=== PATIENT | male | born 1985 | race Caucasian/White ===

== ENCOUNTER 2016-07-23 16:07 | Emergency (ER) | payer OTHER ==
[2016-07-23 16:14] VITALS: BP 131/83; PULSE 99; TEMP 97.6; BMI 38.0
[2016-07-23] MEDS ORDERED: diphenhydrAMINE HCL 25 MG CAPSULE (FP) PO ONE (16:15)
--- NOTE | 2016-07-23 16:15 | PDOC ---
History of Present Illness - History of Present Illness Initial Comments: 07/23/16 16:19 The patient is a 31 year old male, with a significant past medical history of migraines, who presents to the emergency department with a pruritic rash to his bilateral wrists since 10:30 AM today. He reports he was in a dark basement working on an oil tank this morning when he noticed shortly after that his wrists were red and itchy. He reports the right wrist is more itchy and red than his left wrist. He also states that his right wrist is swollen, whereas the left wrist is not. He denies chest pain, shortness of breath, headache and dizziness. He denies fever, chills, nausea, vomit, diarrhea and constipation. He denies dysuria, frequency, urgency and hematuria. Allergies: NKDA <Bessie Wilson - Last Filed: 07/23/16 17:41> <Martha Jacobo - Last Filed: 07/23/16 21:43> - General Chief Complaint: Allergic Reaction Stated Complaint: RT WRIST REDNESS AND SWELLING Time Seen by Provider: 07/23/16 16:15 Past History <Bessie Wilson - Last Filed: 07/23/16 17:41> - Past Medical History Other medical history: DENIES - Psycho/Social/Smoking Cessation Hx Anxiety: No Suicidal Ideation: No Smoking History: Never smoked Have you smoked in the past 12 months: No Information on smoking cessation initiated: No Hx Alcohol Use: No Drug/Substance Use Hx: No Substance Use Type: None <Martha Jacobo - Last Filed: 07/23/16 21:43> - Past Medical History Allergies/Adverse Reactions: Allergies Allergy/AdvReac Type Severity Reaction Status Date / Time No Known Allergies Allergy Verified 07/23/16 16:08 Home Medications: Ambulatory Orders NK [No Known Home Medication] 03/05/14 Review of Systems - Review of Systems Able to Perform ROS?: Yes Comments:: 07/23/16 16:19 GENERAL/CONSTITUTIONAL: No fever or chills. No weakness. HEAD, EYES, EARS, NOSE AND THROAT: No sore throat. MUSCULOSKELETAL: No joint or muscle swelling or pain. No neck or back pain. SKIN: (+) itchy rash to bilateral wrists and swelling to right wrist. NEUROLOGIC: No headache, vertigo, loss of consciousness, or change in strength/ sensation. <Blessing Wilsonanda - Last Filed: 07/23/16 17:41> *Physical Exam - Vital Signs Last Vital Signs Temp Pulse Resp BP Pulse Ox 97.6 F 99 H 20 131/83 99 07/23/16 16:08 07/23/16 16:08 07/23/16 16:08 07/23/16 16:08 07/23/16 16:08 <Bessie Wilson - Last Filed: 07/23/16 17:41> - Vital Signs Last Vital Signs Temp Pulse Resp BP Pulse Ox 97.6 F 99 H 20 131/83 99 07/23/16 16:08 07/23/16 16:08 07/23/16 16:08 07/23/16 16:08 07/23/16 16:08 - Physical Exam Comments: GENERAL: Awake, alert, and fully oriented, in no acute distress HEAD: No signs of trauma EYES: PERRLA, EOMI, sclera anicteric, conjunctiva clear EXTREMITIES: Normal range of motion, no edema. No clubbing or cyanosis. No cords, erythema, or tenderness NEUROLOGICAL: Cranial nerves II through XII grossly intact. Normal speech, normal gait SKIN: Warm, Dry, normal turgor. +Urticarial rash with excoriations to the B/L volar surfaces of the wrists. +Urticarial rash to the volar surface of the R elbow. <Martha Jacobo - Last Filed: 07/23/16 21:43> Medical Decision Making - Medical Decision Making Based on the distribution of the rash, either he developed the hives from directly touching something on the oil tank that caused an allergic reaction ( he mentioned that it was caro and had cobwebs on it), or it may be that he was bitten by a spider in the web. The rash is in the same distribution on both wrists, implying direct contact with something. However, there is redness to the R elbow, as well, but it is not itchy like the wrists. The reaction is not severe and not related to ingesting something, so will not treat with systemic steroids. Benadryl PO and topical hydrocortisone. Stable for DC home. <Martha Jacobo - Last Filed: 07/23/16 21:43> *DC/Admit/Observation/Transfer - Attestations Scribe Attestion: 07/23/16 16:27 Documentation prepared by Bessie Wilson, acting as medical instructor for Martha Jacobo MD, MD <Bessie Wilson - Last Filed: 07/23/16 17:41> - Discharge Dispostion Admit: No <Martha Jacobo - Last Filed: 07/23/16 21:43> Diagnosis at time of Disposition: Hives - Discharge Dispostion Disposition: HOME Condition at time of disposition: Stable - Patient Instructions Printed Discharge Instructions: DI for Hives Additional Instructions: APPLY HYDROCORTISONE 1% CREAM TWICE A DAY NEEDED FOR ITCHING.
[2016-07-23] MEDS ORDERED: diphenhydrAMINE HCL 50 MG CAPSULE ONE (16:18)
== END 2016-07-23 16:33 | disposition home or self-care (01) ==
LOC: FER 16:07
DX: L50.9 Urticaria, unspecified (principal)
CPT/HCPCS: 99282-25

== ENCOUNTER 2016-07-24 09:50 | Emergency (ER) | payer OTHER ==
[2016-07-24 09:55] VITALS: TEMP 98.9; BMI 38.0
[2016-07-24] MEDS ORDERED: ONDANSETRON 4 MG/2 ML VIAL IVPUSH ONE (10:38)
[2016-07-24] MEDS ORDERED: SODIUM CHLORIDE 1,000 ML IV STA (10:40)
[2016-07-24] MEDS ORDERED: ONDANSETRON 4 MG/2 ML VIAL ONE (10:45)
--- NOTE | 2016-07-24 10:51 | PDOC ---
History of Present Illness - General Chief Complaint: Rash Stated Complaint: RASH Time Seen by Provider: 07/24/16 09:58 History Source: Patient (Patient walked in the Er along with his father, second visit to this ER last 24 hours. 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 Treated with prescribed Benadryl & Topical Cortisone ointment with moderate improvement. As of this morning he developed a different rash on the neck and upper torso, seen by him and his father.) Exam Limitations: No Limitations - History of Present Illness Timing/Duration: 4-6 hours Severity: moderate Modifying Factors: improves with: medication Associated Symptoms: reports: denies symptoms. denies: chest pain, cough, fever /chills, headaches, malaise, weakness Past History - Travel Traveled outside of the country in the last 30 days: No Close contact w/someone who was outside of country & ill: No - Past Medical History Allergies/Adverse Reactions: Allergies Allergy/AdvReac Type Severity Reaction Status Date / Time No Known Allergies Allergy Verified 07/24/16 09:51 Home Medications: Ambulatory Orders Diphenhydramine HCl [Benadryl -] 25 mg PO ASDIR 07/24/16 Famotidine [Pepcid -] 20 mg PO BID #14 tablet 07/24/16 Prednisone 10 mg PO ONCE #20 tab.ds.pk 07/24/16 Other medical history: MIGRAINES - Psycho/Social/Smoking Cessation Hx Anxiety: No Suicidal Ideation: No Smoking History: Never smoked Have you smoked in the past 12 months: No Information on smoking cessation initiated: No Hx Alcohol Use: No Drug/Substance Use Hx: No Substance Use Type: None Review of Systems - Review of Systems Able to Perform ROS?: Yes Is the patient limited [place]ian proficient: Yes Constitutional: No: Symptoms Reported, See HPI, Chills, Diaphoresis, Fever, Loss of Appetite, Malaise, Night Sweats, Weakness, Weight Stable, Unintentional Wgt. Loss, Unexplained wgt Loss, Other HEENTM: No: Symptoms Reported, See HPI, Eye Pain, Blurred Vision, Tearing, Recent change in vision, Double Vision, Cataracts, Ear Pain, Ocular Prothesis, Ear Discharge, Nose Pain, Nose Congestion, Tinnitus, Nose Bleeding, Hearing Loss , Throat Pain, Throat Swelling, Mouth Pain, Dental Problems, Difficulty Swallowing, Mouth Swelling, Other Respiratory: No: Symptoms reported, See HPI, Cough, Orthopnea, Shortness of Breath, SOB with Exertion, SOB at Rest, Stridor, Wheezing, Productive cough, Hemoptysis, Other Cardiac (ROS): No: Symptoms Reported, See HPI, Chest Pain, Edema, Irregular Heart Rate, Lightheadedness, Palpitations, Syncope, Chest Tightness, Other ABD/GI: No: Symptoms Reported, See HPI, Abdominal Distended, Abd. Pain w/ defecation, Blood Streaked Bowels, Constipated, Diarrhea, Difficulty Swallowing , Nausea, Poor Appetite, Poor Fluid Intake, Rectal Bleeding, Vomiting, Indigestion, Abdominal cramping, Tarry Stools, Other Integumentary: Yes: Symptoms Reported, See HPI, Lesions, Rash Neurological: No: Symptoms reported, See HPI, Headache, Numbness, Paresthesia, Pre-Existing Deficit, Seizure, Tingling, Tremors, Weakness, Unsteady Gait, Ataxia, Dizziness, Other Psychiatric: No: Anxiety, Depression, Frequent Crying, Stressors, Sleep Pattern Change, Emotional Problems, Mood Swings, Change in Appetite, Other Endocrine: No: Symptoms Reported, See HPI, Excessive Sweating, Flushing, Intolerance to Cold, Intolerance to Heat, Increased Hunger, Increased Thirst, Increased Urine, Unexplained Weight Gain, Unexplained Weight Loss, Change in Weight, Other Hematologic/Lymphatic: No: Symptoms Reported, See HPI, Anemia, Blood Clots, Easy Bleeding, Easy Bruising, Bleeding Diathesis, Lymph Node Abnormalities, Swollen Glands, Other All Other Systems: Reviewed and Negative *Physical Exam - Vital Signs Last Vital Signs Temp Pulse Resp BP Pulse Ox 98.9 F 119 H 16 125/80 96 07/24/16 09:52 07/24/16 09:52 07/24/16 09:52 07/24/16 09:52 07/24/16 09:52 - Physical Exam General Appearance: Yes: Nourished, Appropriately Dressed, Obese. No: Apparent Distress HEENT: positive: MARTINA, Normal ENT Inspection, Normal Voice, Pharynx Normal Neck: positive: Supple. negative: Lymphadenopathy (R), Lymphadenopathy (L) Respiratory/Chest: positive: Lungs Clear Cardiovascular: positive: Regular Rate, S1, S2 Gastrointestinal/Abdominal: positive: Normal Bowel Sounds, Hepatomegaly Lymphatic: negative: Adenopathy Musculoskeletal: positive: Normal Inspection Extremity: positive: Normal Capillary Refill, Normal Inspection Integumentary: positive: Normal Color, Dry, Erythema (Minimal erythema on both wrists & flat circumferential irregular elements of rash in different sizes, with slightly elevated red borders while the center of the elements were clear, pale, withou any other peripheral redness. Location of the rash on the lateral, anterior neck and slightly upper chest areas ) Neurologic: positive: head of precision targeting II-XII NML intact, Fully Oriented, Alert, Normal Mood/ Affect, Normal Response ED Treatment Course - LABORATORY CBC & Chemistry Diagram: 07/24/16 10:55 07/24/16 10:55 Medical Decision Making - Medical Decision Making patient seen immediately from arrival, examined , blood tests ordered. As aworking diagnosis, the potential etiology of the rash might include allergic reactions, contact dermatitis, sytemic reaction, lyme or viral in etiology. Requested ID consult , Dr Rodarte present here, see attached not. Patient received iv steroid, H2 inhibitot iv, fluids, with marked improvement after 3 hours of tratment. Observed every hour bt the hour. As advised discussed with Dr Sams who will follow with the patient next week Agreed with Rx plan 07/28/16 20:14 *DC/Admit/Observation/Transfer Diagnosis at time of Disposition: Rash - Discharge Dispostion Disposition: HOME Condition at time of disposition: Fair Admit: No - Prescriptions Prescriptions: Famotidine [Pepcid -] 20 mg PO BID #14 tablet Prednisone 10 mg PO ONCE #20 tab.ds.pk - Referrals Referrals: Elke Smith MD [Staff Physician] - - Patient Instructions Printed Discharge Instructions: DI for Rash Additional Instructions: Follow up with Dr Ocampo and Dr Smith as advised Ask physicians to follow up ,checking the currently pending lab results - Post Discharge Activity Work/School Note: Back to Work
[2016-07-24 11:12] LABS: MCH 29.1 pg (25.7-33.7); MEAN CELL VOLUME 88.2 fl (80-96); MEAN PLT VOLUME 7.3 fl (7.5-11.1); PLATELET COUNT 309 K/MM3 (134-434); RDW 12.5 % (11.9-15.9); WHITE BLOOD COUNT 20.7 K/mm3 (4.0-10.0)
[2016-07-24] MEDS ORDERED: methylPREDNISolone NA SUCC 125 MG/2 ML VIAL IVPB ONE (11:36)
[2016-07-24 11:37] LABS: ALBUMIN 4.3 g/dl (3.5-5.0); ALK PHOS 94 U/L (32-92); ANION GAP 14 (8-16); BILIRUBIN,TOTAL 1.2 mg/dl (0.2-1.0); CALCIUM 9.3 mg/dl (8.4-10.2); CO2 23 mmol/L (22-28); CREATININE 0.9 mg/dl (0.6-1.3); GLUCOSE,RANDOM 171 mg/dl (74-106); SGOT/AST 20 U/L (10-42); SGPT/ALT 21 U/L (10-40); TOT PROT 7.2 g/dl (6.4-8.3)
[2016-07-24] MEDS ORDERED: FAMOTIDINE 20 MG/50 ML IVPB 50 ML IVPB ONE ×2 (11:38→11:43)
--- NOTE | 2016-07-24 11:42 | PN ---
Progress Note (short form) - Note Progress Note: ID Consult dictated Urticarial rash/ E. multiforme Probable allergic reaction v. viral infection Would treat with tapering steroid regimen, benadryl Dermatology evaluation
[2016-07-24] MEDS ORDERED: methylPREDNISolone NA SUCC 125 MG/2 ML VIAL ONE (11:43)
[2016-07-24 12:23] LABS: ERYTHROCYTE SEDIMENTATION RATE 4 mm/hr (0-10)
[2016-07-24 12:45] VITALS: BP 110/67; PULSE 87
[2016-07-24 14:51] LABS: PLATELET ESTIMATE ADEQUATE (NORMAL)
--- NOTE | 2016-07-24 15:51 | CONS ---
INFECTIOUS DISEASE CONSULTATION DATE OF CONSULTATION: 07/24/2016 The patient is a 31-year-old, previously healthy male evaluated for rash. 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 The patient states he was working in a residential basement on the day prior to his 1st presentation to the emergency room. He had developed a bump on the dorsum of his right hand, which he believes may have been a spider bite. He subsequently developed a pruritic rash and swelling of his right wrist and later his left wrist. He presented to the emergency room where he was evaluated and discharged home with Benadryl. Despite Benadryl, he developed worsening rash involving his upper and lower extremities as well as his trunk. He states the basement that he was working in was filled with cobwebs and was dirty. He denies any respiratory tract symptoms. No associated fever or chills. PAST MEDICAL HISTORY: Positive for migraine. MEDICATIONS: He is presently not on medications. He has not seen a physician for several years. ALLERGIES: No known allergies. SOCIAL HISTORY: As above. Negative tobacco and alcohol or illicit drug use. SYSTEMS REVIEW: Neurologic: No loss of consciousness, seizure activity, focal weakness. Cardiac: Negative chest pain and palpitations. Respiratory: Negative cough or sputum production. Gastrointestinal: Negative vomiting or diarrhea. Genitourinary: Negative for urinary tract infection. LABORATORY DATA: White count 20.7; differential is pending; hematocrit 50.9; platelets 309. Blood cultures are pending. PHYSICAL EXAMINATION: General: The patient is awake and alert. He is lying comfortably in bed. He is in no acute distress. He is not acutely toxic appearing. Vital Signs: Temperature 98.4; blood pressure 125/80; pulse 95, regular; respirations 16 per minute. HEENT: Sclerae are anicteric. Oropharynx: No mucous membrane involvement. Neck: Supple. Heart: Sounds S1, S2. Lungs: Clear. No wheezing or rales. Abdomen: Soft. No tenderness elicited. No palpable liver or spleen. Extremities: Negative for edema. Skin: There are multiple round, urticarial-like lesions present on the upper back, at the base of the neck, upper extremities bilaterally, chest, and abdomen. There is a plaque-like, irregular rash present at the base of the left neck anteriorly. There are no vesicular lesions noted. There are no lesions present on the palms or soles. IMPRESSION: 1. Urticarial rash, possible erythema multiforme. 2. Probable allergic reaction versus viral infection. Morphology of rash suggestive of erythema multiforme versus urticaria. Cause of rash not clear. Patient does not appear to be systemically ill. He is afebrile and nontoxic appearing. Await blood culture results. Continue Benadryl. Will treat with tapering dose of steroids. Dermatology evaluation. No antibiotic therapy advised. Case discussed with patient's father present at the time of the examination. Thank you for the kind referral. JUSTA DIETRICH M.D. JOEL/[id number]
== END 2016-07-24 13:02 | disposition home or self-care (01) ==
LOC: FER 09:50
PROC: 3E033GC Introduction of Other Therapeutic Substance into Peripheral Vein, Percutaneous Approach (ICD-10-PCS; principal; 2016-07-24)
PROC: 3E0337Z Introduction of Electrolytic and Water Balance Substance into Peripheral Vein, Percutaneous Approach (ICD-10-PCS; 2016-07-24)
DX: R21 Rash and other nonspecific skin eruption (principal)
CPT/HCPCS: 36415; 80053; 85025; 85651; 86618; 99282-25